=== PATIENT | female | born 1960 | race Caucasian/White ===

== ENCOUNTER 2018-07-16 12:05 | Emergency (ER) | payer BC ==
[2018-07-16 12:13] VITALS: BP 118/72; PULSE 97; RESP 18; TEMP 98.4
--- NOTE | 2018-07-16 12:43 | ED ---
Lower Extremity Injury HPI - General Chief Complaint: Extremity Injury, Lower Stated Complaint: Fall-Knee Injury Time Seen by Provider: 07/16/18 12:29 Source: patient, family, RN notes reviewed Mode of arrival: wheelchair Limitations: no limitations - History of Present Illness Initial Comments: This is a 58-year-old female with past medical history of diabetes who presents today for chief complaint of right knee pain after fall. Patient states that about 45 minutes ago she was in her garbage holding up a chair in her right arm when she bent down to grab something she lost her balance falling onto her knees bilaterally with the right greater than the left. Patient really noticed pain in her right anterior knee. Patient denies any chest pain, palpitations, dizziness, shortness of breath prior to falling she states that was mechanical nature in addition patient denies hitting her head or injury to any other extremity, LOC, syncope, dislocation, paresthesias, numbness, tingling, loss sensation, discoloration. Patient did admit to a small abrasion to the right anterior knee and significant soft tissue swelling. Patient was able to partial weight-bear, and fully range at the right knee. Patient applied ice to the area and presents emergency department. Patient has not taken any medication for pain. Patient denies any recent fever, chills, back pain, abdominal pain, nausea or vomiting, dysuria or hematuria, constipation or diarrhea, headaches or visual changes, or any other complaints. Upon arrival patient's vital signs stable. - Related Data Home Medications Medication Instructions Recorded Confirmed Insulin Aspart [NovoLOG] 4 unit SQ AC-TID 12/19/14 12/19/14 Insulin Detemir [Levemir] 15 unit SQ HS 12/19/14 12/19/14 Allergies Allergy/AdvReac Type Severity Reaction Status Date / Time Penicillins Allergy Unknown Verified 07/16/18 12:08 Review of Systems ROS Statement: Those systems with pertinent positive or pertinent negative responses have been documented in the HPI. ROS Other: All systems not noted in ROS Statement are negative. Constitutional: Denies: fever, chills Eyes: Denies: vision change ENT: Denies: hearing loss Respiratory: Denies: cough, dyspnea Cardiovascular: Denies: chest pain Gastrointestinal: Denies: abdominal pain, nausea, vomiting Genitourinary: Denies: urgency, dysuria Musculoskeletal: Reports: joint swelling, arthralgia. Denies: back pain Skin: Reports: as per HPI (superficial abrasion anterior right knee). Denies: rash Neurological: Denies: headache, weakness, numbness, paresthesias, confusion Past Medical History Past Medical History: Diabetes Mellitus History of Any Multi-Drug Resistant Organisms: None Reported Past Surgical History: No Surgical Hx Reported Past Psychological History: No Psychological Hx Reported Smoking Status: Never smoker Past Alcohol Use History: None Reported Past Drug Use History: None Reported General Exam - General Exam Comments Initial Comments: General: The patient is awake and alert, in no distress, and does not appear acutely ill. Eye: Pupils are equal, round and reactive to light, extra-ocular movements are intact. No nystagmus. There is normal conjunctiva bilaterally. No signs of icterus. Cardiovascular: There is a regular rate and rhythm. No murmur, rub or gallop is appreciated. Respiratory: Lungs are clear to auscultation, respirations are non-labored, breath sounds are equal. No wheezes, stridor, rales, or rhonchi. Musculoskeletal: Patient is able to fully active and passively range at the knees and hips and ankles bilaterally without difficulty or pain. Patient admits to tenderness to palpation over the anterior right knee. No tenderness to patient over the femur, tibia, fibula or at the ankle joint. No evidence of increased laxity or crepitus. There is significant soft tissue swelling over the anterior and lateral right knee in comparison with the left. Strength of the knees b/l with flexion, extension 5/5. Sensation intact of the lower extremities equally bilaterally. +2 DP and posterior tibial pulses equal bilaterally 2+. No pain with varus or valgus stresses. Compartment of the LE soft and compressible b/l. No evidence of foot drop.No swelling of the posterior knee joint. Extensor mechanism intact. Neurological: A&O x 3. CN II-XII intact, There are no obvious motor or sensory deficits. Coordination appears grossly intact. Speech is normal. Skin: Skin is warm and dry and no rashes or lesions are noted. Psychiatric: Cooperative, appropriate mood & affect, normal judgment. Limitations: no limitations Course Vital Signs 07/16/18 12:08 Temperature 98.4 F Pulse Rate 97 Respiratory 18 Rate Blood Pressure 118/72 O2 Sat by Pulse 97 Oximetry Medical Decision Making - Medical Decision Making 58year old feamle with PMH of diabetes type 1 who presents with cc of right knee pain and swelling s/p fall concerning right patella fracture or dislocation. Pt ordered 800mg of ibuprofen however when the nurse attempted to give the pill pt refused stating it looked big and she was worried it would upset her stomach. XR of right knee obtained revealing no acute fracture or dislocation only soft tissue swelling. XR reviewed by myself and radiologist. Neurovascularly pt intact. Compartment compressible. MSK revealed anterior knee tenderness to palpation.Pt has superficial abrasion over the anterior aspect of the right knee ~2cm in size. Area cleansed and pt received TDaP because it had been greater than 10 years. At this time I feel pt has soft tissue swelling, there is chance of possible ligamentous injury or traumatic bursitis. Case discussed in detail with Dr. Montoya who agreed with impression and plan. Pt will be discharged with RICE instructions, knee immobilizer, over the counter and orthopedic and PCP f/u. Pt agreed with plan. Pt instructed to return verbally and written if symptoms worsen, change or persist. Disposition Clinical Impression: Pain of right knee after injury, Soft tissue swelling Disposition: HOME SELF-CARE Condition: Good Instructions: Knee Pain (ED), RICE Therapy (ED) Additional Instructions: Please use over the counter pain medication as needed, as discussed. Please follow-up with family doctor in the next 2 days. Please follow RICE instructions , as discussed. Please return to emergency room if the symptoms increase or worsen or for any other concerns. Is patient prescribed a controlled substance at d/c from ED?: No Referrals: Robbie Chavez MD [Primary Care Provider] - 1-2 days Alexey Bond PAC [PHYSICIAN POCKET ASSEMBLER] - 1-2 days Time of Disposition: 13:15
--- NOTE | 2018-07-16 13:12 | XR ---
Right knee HISTORY: Trauma and pain 3 views of the right knee Bone mineralization, joint spaces and alignment are maintained. There is soft tissue swelling. No mia dent joint effusion. Vascular calcifications noted incidentally. IMPRESSION: No fracture or dislocation is evident.
[2018-07-16] MEDS: IBUPROFEN 800 MG TAB PO STA ×2 (13:14→13:29)
[2018-07-16] MEDS ORDERED: DIPH,PERTUS(ACELL)TETVAC-LF 0.5 ML VIAL IM ONE (13:25)
== END 2018-07-16 13:49 | disposition home or self-care (01) ==
LOC: EC 12:05
DX: M79.89 Other specified soft tissue disorders (principal); S80.211A Abrasion, right knee, initial encounter; E11.9 Type 2 diabetes mellitus without complications; Z79.4 Long term (current) use of insulin; Z88.0 Allergy status to penicillin; Z23 Encounter for immunization; W01.0XXA Fall on same level from slipping, tripping and stumbling without subsequent striking against object, initial encounter; Y93.89 Activity, other specified; Y92.015 Private garage of single-family (private) house as the place of occurrence of the external cause
CPT/HCPCS: 73562; 90715; 99283; 90471; L1830

== ENCOUNTER 2019-06-13 09:31 | Emergency (ER) | payer BC ==
[2019-06-13 10:11] VITALS: BP 132/81; PULSE 82; RESP 16; TEMP 97.8
--- NOTE | 2019-06-13 10:28 | ED ---
Skin/Abscess/FB HPI - General Chief complaint: Skin/Abscess/Foreign Body Stated complaint: diabetic, wound on head Time Seen by Provider: 06/13/19 10:12 Source: patient, RN notes reviewed, old records reviewed Mode of arrival: ambulatory Limitations: no limitations - History of Present Illness Initial comments: Patient is a 51-year-old female history of diabetes. She states that she went to [place] Over the past week and was in the hot sun, and also reports getting bit by multiple insects. Patient states that she had a small area of insect bite over her forearm. She reports that she he'll do well with putting warm compresses on it. Patient states that she also noticed one over her scalp. She states that it's been irritated, and feels like a throbbing of her scalp. Patient states that she is worried about a tick bite. Patient states that she has no areas of rashes. She states that she's had no fevers or chills. Patient states that she's had no history of resistant skin infections. - Related Data Home Medications Medication Instructions Recorded Confirmed INSULIN ASPART (NovoLOG) [NovoLOG] 4 unit SQ AC-TID 12/19/14 12/19/14 Insulin Detemir (Levemir) [Levemir] 15 unit SQ HS 12/19/14 12/19/14 Previous Rx's Medication Instructions Recorded Doxycycline [Vibramycin] 100 mg PO BID #14 cap 06/13/19 Mupirocin 2% Oint [Bactroban 2% 1 applic TOPICAL TID #60 gm 06/13/19 Oint] Ondansetron Odt [Zofran Odt] 4 mg PO Q8HR PRN #12 tab 06/13/19 Allergies Allergy/AdvReac Type Severity Reaction Status Date / Time Penicillins Allergy Unknown Verified 06/13/19 10:11 Review of Systems ROS Statement: Those systems with pertinent positive or pertinent negative responses have been documented in the HPI. ROS Other: All systems not noted in ROS Statement are negative. Past Medical History Past Medical History: Diabetes Mellitus History of Any Multi-Drug Resistant Organisms: None Reported Past Surgical History: No Surgical Hx Reported Past Psychological History: No Psychological Hx Reported Smoking Status: Never smoker Past Alcohol Use History: None Reported Past Drug Use History: None Reported General Exam - General Exam Comments Initial Comments: This is a 51-year-old female. Alert and oriented. No distress. Limitations: no limitations General appearance: alert, in no apparent distress Head exam: Present: atraumatic, normocephalic, normal inspection, other (Patient has a 1 cm scab-like area with yellow crusting over the mid scalp. Small amount of erythema surrounding it measured 2 cm. No palpable pustule for drainage at this time.) Eye exam: Present: normal appearance, PERRL, EOMI. Absent: scleral icterus, conjunctival injection, periorbital swelling ENT exam: Present: normal exam, mucous membranes moist Neck exam: Present: normal inspection. Absent: tenderness, meningismus, lymphadenopathy Respiratory exam: Present: normal lung sounds bilaterally. Absent: respiratory distress, wheezes, rales, rhonchi, stridor Cardiovascular Exam: Present: regular rate, normal rhythm, normal heart sounds. Absent: systolic murmur, diastolic murmur, rubs, gallop, clicks GI/Abdominal exam: Present: soft, normal bowel sounds. Absent: distended, tenderness, guarding, rebound, rigid Extremities exam: Present: normal inspection, full ROM, normal capillary refill. Absent: tenderness, pedal edema, joint swelling, calf tenderness Back exam: Present: normal inspection Neurological exam: Present: alert, oriented X3, CN II-XII intact Course Vital Signs 06/13/19 10:08 Temperature 97.8 F Pulse Rate 82 Respiratory 16 Rate Blood Pressure 132/81 O2 Sat by Pulse 98 Oximetry Medical Decision Making - Medical Decision Making Patient's 51-year-old female with a lesion over her scalp. She was she was bit by an insect bite causing an infection. Patient's initial concern for tick bite. Patient has a central scab over the top of her scalp with surrounding erythema measuring 2 cm. There is small amount of yellow crust-like drainage around the scab concern for staph infection or impetigo. Patient advised that I'll put her on mupirocin ointment. I do not Noticed any Bullseye-like rash or any area on the embedded tick in the scalp. Patient will be discharged with a short course of doxycycline as well, but this concern and the concern for staph infection on the scalp. All questions answered. Return parameters were discussed. Disposition Clinical Impression: Infected scalp abrasion Disposition: HOME SELF-CARE Condition: Good Instructions (If sedation given, give patient instructions): Impetigo (ED) Additional Instructions: started apply warm compresses over the area. Take antibiotics as prescribed. Patient should apply a thin film of the antibiotic ointment 3 times a day. Follow up with your primary care doctor symptoms continue persist or worsen within the next 1-2 days. Prescriptions: Mupirocin 2% Oint [Bactroban 2% Oint] 1 applic TOPICAL TID #60 gm Doxycycline [Vibramycin] 100 mg PO BID #14 cap Ondansetron Odt [Zofran Odt] 4 mg PO Q8HR PRN #12 tab PRN Reason: Nausea Is patient prescribed a controlled substance at d/c from ED?: No Referrals: Robbie Chavez MD [Primary Care Provider] - 1-2 days Time of Disposition: 10:26
== END 2019-06-13 10:40 | disposition home or self-care (01) ==
LOC: EC 09:31
DX: S00.01XA Abrasion of scalp, initial encounter (principal); L08.9 Local infection of the skin and subcutaneous tissue, unspecified; E11.9 Type 2 diabetes mellitus without complications; Z79.4 Long term (current) use of insulin; Z88.0 Allergy status to penicillin; W57.XXXA Bitten or stung by nonvenomous insect and other nonvenomous arthropods, initial encounter
CPT/HCPCS: 99283

== ENCOUNTER → 2020-03-16 | Outpatient (CLI) | payer BC ==
--- NOTE | 2020-03-16 10:07 | US ---
EXAMINATION TYPE: US thyroid st tissue head/neck DATE OF EXAM: 03/16/2020 COMPARISON: NONE CLINICAL HISTORY: 60-year-old female E04.9 Goiter, swelling on right neck TECHNIQUE: Multiple sonographic images of the thyroid gland are obtained. FINDINGS: GLAND SIZE: Right Lobe: 4.8 x 2.9 x 3.4 cm Overall Parenchyma: heterogenous Left Lobe: 4.7 x 1.2 x 1.0 cm Overall Parenchyma: heterogeneous Isthmus Thickness: 0.2 cm NODULES RIGHT: # of nodules measured on right: 1 1. 4.2 X 3.0 x 3.0 cm isoechoic, heterogeneous solid nodule at the mid pole with well-defined rossana ns. This nodule is wider than tall and shows intranodular vascularity. No prior LEFT: # of nodules measured on left: 0 ISTHMUS: # of nodules measured in the isthmus: 0 Bilateral neck scanned, no evidence of lymphadenopathy. IMPRESSION: Solitary solid 4.2 cm nodule in the right lobe. Correlate with TFTs and FNA as indicated.
== END | disposition home or self-care (01) ==
LOC: RADUSWWP 09:25
PROVIDERS: ATTEND Internal Medicine Geriatric Medicine
DX: E04.1 Nontoxic single thyroid nodule (principal)
CPT/HCPCS: 76536

== ENCOUNTER 2020-03-21 09:04 | Day surgery (SDC) | payer BC ==
[2020-03-21 09:22] VITALS: BP 133/63; PULSE 80; RESP 20; TEMP 97.7
[2020-03-21] MEDS ORDERED: ALPRAZolam 0.5 MG TAB PO STA (09:23)
--- NOTE | 2020-03-21 10:26 | US ---
ULTRASOUND GUIDED FNA THYROID BIOPSY: CLINICAL HISTORY: Large right thyroid nodule FINDINGS: The procedure was explained to the patient. The risks, complications, benefits and alternatives were discussed and any questions were answered. Informed consent was obtained. Patient was placed supin e on the ultrasound table and prepped and draped in the usual sterile fashion. Utilizing a 25 gauge needle, five passes were made into the requested right thyroid nodule. Patient was stable throughout the procedure. Pathology is pending. All elements of maximal barrier technique were utilized. IMPRESSION: 1. Successful ultrasound guided FNA thyroid biopsy.
== END 2020-03-21 10:30 | disposition home or self-care (01) ==
LOC: RADPROMAIN 09:04
PROVIDERS: ATTEND Internal Medicine Geriatric Medicine
DX: E04.1 Nontoxic single thyroid nodule (principal)
CPT/HCPCS: 10005; 88173; 88305

== ENCOUNTER → 2020-06-15 | Outpatient (CLI) | payer BC ==
--- NOTE | 2020-06-15 13:09 | XR ---
EXAMINATION TYPE: XR foot complete RT DATE OF EXAM: 06/15/2020 COMPARISON: NONE HISTORY: Pain TECHNIQUE: Three views are submitted. FINDINGS: The osseous structures are intact. There is no acute fracture or dislocation. Arthropathy of the f irst MTP diffuse osteopenia. Small plantar calcaneal spur. IMPRESSION: 1. No acute fracture or dislocation. If symptoms persist, follow-up exam in 7 to 10 days could be ob tained.
== END ==
LOC: RADXRMAIN 12:33
PROVIDERS: ATTEND Internal Medicine
DX: M20.61 Acquired deformities of toe(s), unspecified, right foot (principal)

== ENCOUNTER → 2020-08-27 | Outpatient (CLI) | payer BC ==
--- NOTE | 2020-08-27 14:33 | XR ---
Chest x-ray with left RIBS HISTORY: Closed fracture of one rib on left side, pain and left-sided chest, trauma Frontal view of the chest and 4 views of the left ribs submitted There is no pneumothorax or pleural effusion. Cardiomediastinal silhouette, pulmonary vascularity and ida within normal limits. There is a slight spinal curvature. No evident lung contusion. No displac ed rib fracture. IMPRESSION: No acute abnormality. Bone scan could be performed for increased sensitivity if occult fr acture is suspected clinically.
== END | disposition home or self-care (01) ==
LOC: RADXRMAIN 13:06
PROVIDERS: ATTEND Internal Medicine
DX: S22.32XA Fracture of one rib, left side, initial encounter for closed fracture (principal)

== ENCOUNTER → 2020-11-28 | Outpatient (CLI) | payer BC ==
[2020-11-28 08:26] LABS: Basophils # (A) 0.1 k/uL (0-0.2); Basophils % (A) 1 %; Eosinophils # (A) 0.3 k/uL (0-0.7); Eosinophils % (A) 5 %; HCT 44.4 % (34.0-46.0); HGB 14.3 gm/dL (11.4-16.0); Lymphocytes % (A) 17 %; MCH 28.1 pg (25.0-35.0); MCHC 32.1 g/dL (31.0-37.0); MCV 87.6 fL (80.0-100.0); Mean Platelet Volume 7.5; Monocytes # (A) 0.3 k/uL (0-1.0); Monocytes % (A) 5 %; Neutrophils # (A) 4.5 k/uL (1.3-7.7); Neutrophils % (A) 72 %; Platelet Count 248 k/uL (150-450); RBC 5.07 m/uL (3.80-5.40); RDW 13.5 % (11.5-15.5); WBC 6.3 k/uL (3.8-10.6)
[2020-11-28 11:52] LABS: African American GFR (CKD) 93.5 (60.0-200.0); Albumin 4.1 g/dL (3.80-4.90); Albumin/Globulin Ratio 1.71 (1.60-3.17); Anion Gap 7.4 mmol/L (4.00-12.00); BUN/Creat Ratio 21.25 Ratio (12.00-20.00); Calcium 8.9 mg/dL (8.7-10.3); Carbon Dioxide 31.6 mmol/L (21.6-31.8); Chol/HDL Ratio 2.83; Globulin 2.4 g/dL (1.6-3.3); LDL Cholesterol,Calculated 125.8 mg/dL (0.0-131.0); Non-African American GFR(CKD) 80.7 (60.0-200.0); Potassium 4.7 mmol/L (3.5-5.5); T4, Free (Free Thyroxine) 0.6 ng/dL (0.80-1.80); Total Bilirubin 0.3 mg/dL (0.3-1.2); Total Protein 6.5 g/dL (6.2-8.2); VLDL Calculation 17.2 mg/dL (5.00-40.00)
[2020-11-28 16:07] LABS: Urine Creatinine 154.7 mg/dL
[2020-11-28 16:19] LABS: Hemoglobin A1C 8.8 % (4.0-6.0)
== END | disposition home or self-care (01) ==
LOC: LABWHC1 07:31
PROVIDERS: ATTEND Internal Medicine
DX: E03.9 Hypothyroidism, unspecified (principal); E78.2 Mixed hyperlipidemia; E10.40 Type 1 diabetes mellitus with diabetic neuropathy, unspecified
CPT/HCPCS: 36415; 80053; 80061; 82043; 82570; 83036; 84439; 84443; 85025

== ENCOUNTER → 2020-12-19 | Outpatient (CLI) | payer BC ==
--- NOTE | 2020-12-19 13:05 | XR ---
KUB HISTORY: Left lower quadrant pain Frontal KUB on 2 images Calcifications in the left and right hemipelvis is likely vascular. Lung bases are clear. No evident bowel obstruction or pneumoperitoneum. Retained fecal debris present throughout the distribution of t he colon. Bone mineralization is normal. impression: Correlate for fecal stasis.
== END | disposition home or self-care (01) ==
LOC: RADXRMAIN 10:07
PROVIDERS: ATTEND Internal Medicine
DX: R10.12 Left upper quadrant pain (principal)
CPT/HCPCS: 74018

== ENCOUNTER → 2021-03-29 | Outpatient (CLI) | payer BC ==
[2021-03-29 17:05] LABS: Basophils # (A) 0.04 X 10*3/uL (0.00-0.10); Basophils % (A) 0.7 %; Eosinophils # (A) 0.26 X 10*3/uL (0.04-0.35); Eosinophils % (A) 4.4 %; HCT 41.2 % (37.2-46.3); Lymphocytes # (A) 0.93 X 10*3/uL (0.90-5.00); Lymphocytes % (A) 15.7 %; MCH 28.4 pg (27.0-32.0); MCHC 31.6 g/dL (32.0-37.0); MCV 90.2 fL (80.0-97.0); Mean Platelet Volume 11.3 fL (9.5-12.2); Monocytes # (A) 0.32 X 10*3/uL (0.20-1.00); Monocytes % (A) 5.4 %; Neutrophils # (A) 4.37 X 10*3/uL (1.80-7.70); Neutrophils % (A) 73.5 %; Platelet Count 232 X 10*3/uL (140-440); RBC 4.57 X 10*6/uL (4.10-5.20); RDW 12.3 % (11.5-14.5); WBC 5.94 X 10*3/uL (4.50-10.00)
[2021-03-29 18:17] LABS: Hemoglobin A1C 9.1 % (4.0-6.0)
[2021-03-29 21:31] LABS: African American GFR (CKD) 92.9 (60.0-200.0); Albumin 4.1 g/dL (3.80-4.90); Albumin/Globulin Ratio 1.78 (1.60-3.17); Anion Gap 8.8 mmol/L (4.00-12.00); BUN/Creat Ratio 17.5 Ratio (12.00-20.00); Carbon Dioxide 29.2 mmol/L (21.6-31.8); Chol/HDL Ratio 2.93; Globulin 2.3 g/dL (1.6-3.3); Non-African American GFR(CKD) 80.1 (60.0-200.0); Potassium 5.1 mmol/L (3.5-5.5); Total Bilirubin 0.3 mg/dL (0.3-1.2); Total Protein 6.4 g/dL (6.2-8.2)
[2021-03-29 21:38] LABS: T4, Free (Free Thyroxine) 0.9 ng/dL (0.80-1.80)
== END | disposition home or self-care (01) ==
LOC: LABWHC1 08:10
PROVIDERS: ATTEND Internal Medicine
DX: C73 Malignant neoplasm of thyroid gland (principal); E03.9 Hypothyroidism, unspecified; E10.40 Type 1 diabetes mellitus with diabetic neuropathy, unspecified; E78.2 Mixed hyperlipidemia; E10.65 Type 1 diabetes mellitus with hyperglycemia
CPT/HCPCS: 36415; 80053; 80061; 83036; 84432; 84439; 84443; 85025; 86800

== ENCOUNTER → 2021-08-02 | Outpatient (CLI) | payer BC ==
[2021-08-02 17:08] LABS: Basophils # (A) 0.03 X 10*3/uL (0.00-0.10); Basophils % (A) 0.6 %; Eosinophils # (A) 0.27 X 10*3/uL (0.04-0.35); Eosinophils % (A) 5.1 %; HCT 41.1 % (37.2-46.3); HGB 13.3 g/dL (12.0-15.0); Lymphocytes # (A) 0.86 X 10*3/uL (0.90-5.00); Lymphocytes % (A) 16.2 %; MCH 29.1 pg (27.0-32.0); MCHC 32.4 g/dL (32.0-37.0); MCV 89.9 fL (80.0-97.0); Mean Platelet Volume 11.1 fL (9.5-12.2); Monocytes # (A) 0.35 X 10*3/uL (0.20-1.00); Monocytes % (A) 6.6 %; Neutrophils % (A) 71.3 %; Platelet Count 240 X 10*3/uL (140-440); RBC 4.57 X 10*6/uL (4.10-5.20); RDW 12.8 % (11.5-14.5); WBC 5.32 X 10*3/uL (4.50-10.00)
[2021-08-02 20:24] LABS: Hemoglobin A1C 8.6 % (4.0-6.0)
[2021-08-02 21:40] LABS: Microalbumin Creatinine Ratio <30 mg/g Creat (0-30); Urine Creatinine 67.3 mg/dL
[2021-08-02 22:45] LABS: African American GFR (CKD) 92.9 (60.0-200.0); Albumin 4.3 g/dL (3.80-4.90); Albumin/Globulin Ratio 1.65 (1.60-3.17); Anion Gap 9.1 mmol/L (4.00-12.00); BUN/Creat Ratio 17.5 Ratio (12.00-20.00); Calcium 9.2 mg/dL (8.7-10.3); Carbon Dioxide 27.9 mmol/L (21.6-31.8); Chol/HDL Ratio 2.64; Globulin 2.6 g/dL (1.6-3.3); LDL Cholesterol,Calculated 114.8 mg/dL (0.0-131.0); Non-African American GFR(CKD) 80.1 (60.0-200.0); Potassium 4.8 mmol/L (3.5-5.5); Total Bilirubin 0.3 mg/dL (0.3-1.2); Total Protein 6.9 g/dL (6.2-8.2); VLDL Calculation 16.2 mg/dL (5.00-40.00)
[2021-08-02 22:52] LABS: T4, Free (Free Thyroxine) 1.1 ng/dL (0.80-1.80)
== END | disposition home or self-care (01) ==
LOC: LABWHC1 08:05
PROVIDERS: ATTEND Internal Medicine
DX: E78.2 Mixed hyperlipidemia (principal); E03.9 Hypothyroidism, unspecified; M77.41 Metatarsalgia, right foot; E10.40 Type 1 diabetes mellitus with diabetic neuropathy, unspecified
CPT/HCPCS: 36415; 80053; 80061; 82043; 82570; 83036; 84439; 84443; 85025

== ENCOUNTER 2021-08-25 23:40 | Emergency (ER) | payer BC ==
[2021-08-25 23:48] VITALS: TEMP 98.3
[2021-08-26 00:06] LABS: Glucose,Whole Blood 267 mg/dL (75-99)
[2021-08-26 01:04] LABS: Glucose,Whole Blood 232 mg/dL (75-99)
[2021-08-26 01:08] VITALS: BP 159/90; PULSE 95; RESP 22
[2021-08-26 02:04] LABS: Glucose,Whole Blood 237 mg/dL (75-99)
--- NOTE | 2021-08-26 02:22 | ED ---
Recheck HPI - General Chief Complaint: Recheck/Abnormal Lab/Rx Stated Complaint: Insulin Overdose Time Seen by Provider: 08/25/21 23:53 Source: patient, RN notes reviewed, old records reviewed Mode of arrival: wheelchair Limitations: no limitations - History of Present Illness Initial Comments: Patient is a 61-year-old female, with history of diabetes, presenting to the emergency Department with concerns over accidentally taking too much short acting insulin just prior to arrival. Patient states she has injectable pen that are similar in color, she accidentally grabbed her short acting panic and gave herself 12 units when she thought was a long-acting. She has been monitoring her glucose levels, she ate a lot of glucose prior to arrival. She is very anxious and concerned for her sugar lowering too much. She denies any chest pain or short of breath, no nausea or vomiting. She denies any abdominal pain, no dizziness or headaches. She has no further complaints at this time. - Related Data Home Medications Medication Instructions Recorded Confirmed Insulin Glargine,Hum.rec.anlog 12 unit SQ BID 06/13/19 03/21/20 [Basaglar Kwikpen U-100] Insulin Lispro [Admelog Solostar] 4 - 5 unit SQ ACHS 06/13/19 03/21/20 Levothyroxine (Unknown Dose) 1 tab PO DAILY 06/13/19 03/21/20 Ibuprofen [Advil] 200 mg PO Q8HR PRN 03/20/20 03/21/20 Allergies Allergy/AdvReac Type Severity Reaction Status Date / Time Penicillins Allergy Unknown Verified 08/25/21 23:44 Review of Systems ROS Statement: Those systems with pertinent positive or pertinent negative responses have been documented in the HPI. ROS Other: All systems not noted in ROS Statement are negative. Past Medical History Past Medical History: Diabetes Mellitus, Thyroid Disorder History of Any Multi-Drug Resistant Organisms: None Reported Past Surgical History: Breast Surgery Additional Past Surgical History / Comment(s): Left lumpectomy- "-", laproscopic surgery Past Anesthesia/Blood Transfusion Reactions: No Reported Reaction Past Psychological History: Anxiety Smoking Status: Never smoker Past Alcohol Use History: None Reported Past Drug Use History: None Reported - Past Family History Mother Family Medical History: Thyroid Disorder Additional Family Medical History / Comment(s): Graves disease General Exam - General Exam Comments Initial Comments: GENERAL: Patient is well-developed and well-nourished. Patient is nontoxic and in no acute distress, but very anxious. HEAD: Atraumatic, normocephalic. EYES: Pupils equal round and reactive to light, extraocular movements intact, sclera anicteric, conjunctiva are normal. Eyelids were unremarkable. ENT: Moist mucous membranes. NECK: Normal range of motion, supple without lymphadenopathy or JVD. LUNGS: Unlabored respirations. Breath sounds clear to auscultation bilaterally and equal. No wheezes rales or rhonchi. HEART: Regular rate and rhythm without murmurs, rubs or gallops. ABDOMEN: Soft, nontender, normoactive bowel sounds. No guarding, no rebound. No masses appreciated. : Deferred MUSCULOSKELETAL: Normal extremities with adequate strength and normal range of motion, no pitting or edema. No clubbing or cyanosis. NEUROLOGICAL: Patient is alert and oriented x 3. SKIN: Warm, Dry, normal turgor, no rashes or lesions noted. Limitations: no limitations Course Vital Signs 08/25/21 23:44 Temperature 98.3 F Pulse Rate 95 Respiratory 22 Rate Blood Pressure 159/90 O2 Sat by Pulse 99 Oximetry Medical Decision Making - Medical Decision Making Patient is a 7-year-old female with history of diabetes presenting after accidentally given soap 12 units of fast acting insulin instead of her long- acting just prior to arrival. She is very concerned about her blood sugar dropping too low. She states prior to taking the insulin her sugar was almost 400. Upon arrival to our ER, her glucose is 267. We did monitor for 1 hour, recheck was 232. She was concerned that was lowering too quickly and wanted to be watched for an additional half an hour. I did recheck it again and it was 237. Patient feels couple going home. I recommend skipping the long-acting this evening and resume her regular regimen in the morning. She is agreeable to this and is stable for discharge. Return parameters were discussed with her and she verbalized understanding. Case discussed with Dr. Angelo. - Lab Data Lab Results 08/26/21 08/26/21 08/26/21 Range/Units 00:04 01:03 02:02 POC Glucose (mg/dL) 267 H 232 H 237 H (75-99) mg/dL POC Glu [employer] T[employer] ID Izaiah Fergusont, Izaiah Abbott Disposition Clinical Impression: Insulin overdose Disposition: HOME SELF-CARE Condition: Stable Instructions (If sedation given, give patient instructions): Type 2 Diabetes Management for Adults (ED) Additional Instructions: Please return to the Emergency Department if symptoms worsen or any other concerns. Continue your regular regimen tomorrow morning. Follow-up with your primary care as needed. Is patient prescribed a controlled substance at d/c from ED?: No Referrals: Jerson Valdes MD [Primary Care Provider] - 1-2 days Time of Disposition: 02:22
== END 2021-08-26 02:31 | disposition home or self-care (01) ==
LOC: EC 23:40
DX: T38.3X1A Poisoning by insulin and oral hypoglycemic [antidiabetic] drugs, accidental (unintentional), initial encounter (principal); E11.9 Type 2 diabetes mellitus without complications; Z79.4 Long term (current) use of insulin; Z79.890 Hormone replacement therapy; Z79.1 Long term (current) use of non-steroidal anti-inflammatories (NSAID); Z88.0 Allergy status to penicillin
CPT/HCPCS: 36415; 99284

== ENCOUNTER → 2021-11-22 | Outpatient (CLI) | payer BC ==
[2021-11-22 09:46] LABS: Appearance,Urine Clear (Clear); Bilirubin,Urine Negative (Negative); Blood,Urine Negative (Negative); Color,Urine Light Yellow; Glucose,Urine (UA) Negative (Negative); Ketones,Urine Negative (Negative); Leukocyte Esterase,Urine Negative (Negative); Nitrite,Urine Negative (Negative); PH, Urine 5.5 (5.0-8.0); Protein,Urine Negative (Negative); Specific Gravity,Urine 1.015 (1.001-1.035); Urobilinogen,Urine <2.0 mg/dL (<2.0)
[2021-11-22 15:21] LABS: Basophils # (A) 0.03 X 10*3/uL (0.00-0.10); Basophils % (A) 0.6 %; Eosinophils # (A) 0.32 X 10*3/uL (0.04-0.35); HCT 41.5 % (37.2-46.3); HGB 12.8 g/dL (12.0-15.0); Lymphocytes # (A) 0.88 X 10*3/uL (0.90-5.00); Lymphocytes % (A) 16.5 %; MCH 27.8 pg (27.0-32.0); MCHC 30.8 g/dL (32.0-37.0); MCV 90.2 fL (80.0-97.0); Mean Platelet Volume 10.9 fL (9.5-12.2); Monocytes # (A) 0.34 X 10*3/uL (0.20-1.00); Monocytes % (A) 6.4 %; Neutrophils # (A) 3.75 X 10*3/uL (1.80-7.70); Neutrophils % (A) 70.3 %; Platelet Count 239 X 10*3/uL (140-440); RDW 12.8 % (11.5-14.5); WBC 5.33 X 10*3/uL (4.50-10.00)
[2021-11-22 16:25] LABS: ALT 35 U/L (8-44); AST 29 U/L (13-35); Albumin 4.1 g/dL (3.8-4.9); Albumin/Globulin Ratio 1.53 (1.60-3.17); Alkaline Phosphatase 122 U/L (41-126); BUN/Creat Ratio 25.11 Ratio (12.00-20.00); Blood Urea Nitrogen 16.7 mg/dL (9.0-27.0); Calcium 9.2 mg/dL (8.7-10.3); Carbon Dioxide 26.9 mmol/L (20.0-27.5); Chloride 100 mmol/L (96-109); Globulin 2.7 g/dL (1.6-3.3); Glucose 221 mg/dL (70-110); Non-African American GFR(CKD) 95.8 (60.0-200.0); Potassium 5.3 mmol/L (3.5-5.5); Sodium 140 mmol/L (135-145); Total Protein 6.7 g/dL (6.2-8.2)
[2021-11-22 16:26] LABS: Chol/HDL Ratio 2.84 Ratio; LDL Cholesterol,Calculated 124.6 mg/dL (0.0-131.0); Uric Acid 2.7 mg/dL (2.9-7.7)
== END | disposition home or self-care (01) ==
LOC: LABWHC1 08:34
PROVIDERS: ATTEND Internal Medicine
DX: E78.2 Mixed hyperlipidemia (principal); E03.9 Hypothyroidism, unspecified; E10.40 Type 1 diabetes mellitus with diabetic neuropathy, unspecified; M25.571 Pain in right ankle and joints of right foot
CPT/HCPCS: 36415; 80053; 80061; 81003; 83036; 84439; 84443; 84550; 85025

== ENCOUNTER → 2022-03-14 | Outpatient (CLI) | payer BC ==
[2022-03-14 14:04] LABS: Basophils # (A) 0.04 X 10*3/uL (0.00-0.10); Basophils % (A) 0.8 %; Eosinophils # (A) 0.25 X 10*3/uL (0.04-0.35); Eosinophils % (A) 4.8 %; HCT 40.1 % (37.2-46.3); HGB 12.6 g/dL (12.0-15.0); Immature Grans, Automated 0.2 %; Lymphocytes # (A) 0.99 X 10*3/uL (0.90-5.00); MCHC 31.4 g/dL (32.0-37.0); MCV 89.1 fL (80.0-97.0); Mean Platelet Volume 10.8 fL (9.5-12.2); Monocytes % (A) 7.7 %; NRBC Per 100 WBC 0 /100 WBCS (0.0-0.0); Neutrophils # (A) 3.52 X 10*3/uL (1.80-7.70); Neutrophils % (A) 67.5 %; Platelet Count 220 X 10*3/uL (140-440); RDW 12.8 % (11.5-14.5); WBC 5.21 X 10*3/uL (4.50-10.00)
[2022-03-14 14:48] LABS: ALT 38 U/L (8-44); AST 33 U/L (13-35); African American GFR (CKD) 108.4 (60.0-200.0); Albumin/Globulin Ratio 1.54 (1.60-3.17); Alkaline Phosphatase 111 U/L (41-126); Blood Urea Nitrogen 13.3 mg/dL (9.0-27.0); Calcium 9.1 mg/dL (8.7-10.3); Carbon Dioxide 28.6 mmol/L (20.0-27.5); Chloride 103 mmol/L (96-109); Globulin 2.6 g/dL (1.6-3.3); Glucose 151 mg/dL (70-110); LDL Cholesterol,Calculated 122.4 mg/dL (0.0-131.0); Non-African American GFR(CKD) 93.5 (60.0-200.0); Potassium 4.9 mmol/L (3.5-5.5); Sodium 139 mmol/L (135-145); Total Protein 6.6 g/dL (6.2-8.2); VLDL Calculation 13.86 mg/dL (5.00-40.00)
[2022-03-14 18:56] LABS: Urine Creatinine 98.3 mg/dL (28.0-217.0)
== END | disposition home or self-care (01) ==
LOC: LABWHC1 07:29
PROVIDERS: ATTEND Internal Medicine
DX: E03.9 Hypothyroidism, unspecified (principal); E78.2 Mixed hyperlipidemia; E10.40 Type 1 diabetes mellitus with diabetic neuropathy, unspecified; K21.9 Gastro-esophageal reflux disease without esophagitis
CPT/HCPCS: 36415; 80053; 80061; 82043; 82570; 83036; 84439; 84443; 85025